=== PATIENT | female | born 1980 | race Hispanic/Latino ===

== ENCOUNTER 2016-03-01 08:06 | Emergency (ER) | payer OTHER ==
[~2016-03-01] VITALS: Ht 152.4 cm; Wt 61.2 kg
[2016-03-01 08:10] VITALS: BP 126/78
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
[2016-03-01] MEDS ORDERED: MOBIC15 M1 PO (10:02)
[2016-03-01] MEDS ORDERED: CYCLOBENZAPRINE10 M1 PO (10:02)
== END 2016-03-01 10:04 ==
LOC: ERH 08:06
DX: S16.1XXA Strain of muscle, fascia and tendon at neck level, initial encounter (principal); S29.012A Strain of muscle and tendon of back wall of thorax, initial encounter; V43.52XA Car driver injured in collision with other type car in traffic accident, initial encounter
CPT/HCPCS: 72050